=== PATIENT | female | born 1965 | race American Indian/Alaskan Native ===

== ENCOUNTER 2018-09-02 09:46 | Outpatient (CLI) | payer OTHER ==
--- NOTE | 2018-09-02 13:13 | Magnetic Resonance Report ---
MR PELVIS WITH AND WITHOUT CONTRAST HISTORY: Abnormal uterine bleeding. Pelvic pain. COMPARISON: None. TECHNIQUE: Routine pre and post-contrast MRI of the pelvis obtained. CONTRAST: 15.0 mL MultiHance was injected intravenously without incident. Informed consent was obtain ed prior to the administration of contrast. FINDINGS: Uterus: Anteverted and enlarged with normal configuration. The uterus measures 23.0 cm in length by 1 0.0 cm AP dimension by 16.2 cm transverse dimension. Myometrium: Several nonenhancing left or intramural leiomyomata. The 2 largest measure 4.5 and 4.0 cm in maximum diameter. An anterior lower uterine segment subserosal fibroid demonstrates relatively un iform enhancement postcontrast and measures 3.2 cm. Junctional zone: Markedly thickened. It measures 4.5 cm maximum thickness anteriorly. The thickened j unctional zone consistent of T2 hyperintense glands and several foci of T1 hyperintensity consistent with tiny hemorrhages. Endometrium: Normal contour with maximum thickness 8.7 mm. Cervix: No significant abnormality. Vagina: No significant abnormality. Right ovary: Small and not optimally imaged. Left ovary:Small and not optimally imaged. Lymphatics: No lymphadenopathy. Bowel: No significant abnormality. Urinary Bladder: No significant abnormality. Fluid: No ascites. Bone Marrow: No significant abnormality. Muscles: No significant abnormality. Subcutaneous soft tissues: No significant abnormality. Additional Findings: No mass. IMPRESSION: 1. Enlarged uterus which is primarily attributable to adenomyosis. 2. Uterine leiomyomata with the largest measuring 4.5 cm. 3. Only one of 5 identifiable fibroadenomas demonstrates enhancement postcontrast. 4. Normal endometrium. 5. Small ovaries which are not optimally imaged. Signer Name: Olegario Singh MD Signed: 09/02/2018 1:09 PM Workstation Name: [id number]
== END 2018-09-02 09:47 | disposition home or self-care (01) ==
LOC: MRI 09:46
PROVIDERS: ATTEND Radiology Vascular & Interventional Radiology
DX: D25.1 Intramural leiomyoma of uterus (principal); N80.0 Endometriosis of uterus
CPT/HCPCS: 72197; A9577